=== PATIENT | female | born 1950 | race Caucasian/White ===

== ENCOUNTER 2019-04-29 18:01 | Inpatient (IN) | payer MEDICARE, OTHER ==
[~2019-04-29] VITALS: Ht 165.1 cm; Wt 60.9 kg
[~2019-04-29 18:01] MED LIST: VICODIN 500 MG-1 TAB PO; [UNRECOGNIZED DRUG - OTHER]
[2019-04-29 18:21] VITALS: BP 181/113
[2019-04-29 18:28] VITALS: BP 168/94
[2019-04-29 18:46] LABS: BASO # 0.1 10*3/uL (0.0-0.1); BASO % 0.6 % (0.0-1.0); EOS # 0.1 10*3/uL (0.0-0.4); EOS % 0.7 % (1.0-4.0); HEMOGLOBIN 11.5 g/dl (12.0-16.0); LYMPH # 1.3 10*3/uL (1.3-4.4); LYMPH % 13.9 % (27.0-41.0); MEAN CELL VOLUME 103.6 fl (81.0-99.0); MEAN CORPUSCULAR HGB CONC 32.9 g/dl (33.0-37.0); MONO # 0.6 10*3/uL (0.1-1.0); MONO % 6.5 % (3.0-9.0); NEUT # 7.4 10*3/uL (2.3-7.9); NEUT % 78.1 % (47.0-73.0); PLATELET COUNT AUTOMATED 243 10*3/uL (130-400); RED BLOOD COUNT 3.38 10*6/uL (4.10-5.10); RED CELL DISTRI WIDTH 13.2 % (0-14.5); WHITE BLOOD COUNT 9.5 10*3/uL (4.8-10.8)
[2019-04-29 18:58] LABS: ACT PARTIAL THROMBO TIME 28.8 SECONDS (20.0-32.1)
[2019-04-29 19:02] LABS: ALBUMIN 3.3 gm/dl (3.1-4.5); ALKALINE PHOSPHATASE 98 U/L (45-117); BUN 11 mg/dl (7-24); CHLORIDE 99 mmol/L (98-107); CREATININE 1.02 mg/dL (0.55-1.02); POTASSIUM 3.1 mmol/L (3.5-5.1); SGOT/AST 14 IU/L (3-35); SGPT/ALT 20 U/L (12-78); SODIUM 135 mmol/L (136-145); TOTAL PROTEIN 7.5 gm/dL (6.4-8.2)
[2019-04-29 19:12] LABS: TROPONIN I < 0.015 ng/ml (<0.045)
[2019-04-29 19:35] VITALS: BP 121/77
[2019-04-29 21:05] LABS: ABG BASE EXCESS 4.6 mmol/L (-2.0-2.0); ARTERIAL BLOOD GAS PH 7.451 (7.35-7.45)
[2019-04-29 21:27] VITALS: BP 147/83
[2019-04-29] MEDS ORDERED: QUINOPRIL PO (22:48)
[2019-04-29] MEDS ORDERED: PROAIR HFA8.5 GM INH (22:50)
[2019-04-29] MEDS ORDERED: TYLENOL325 M1 PO (22:55)
[2019-04-30] VITALS: BP 126/94
[2019-04-30 07:07] LABS: BASO # 0.1 10*3/uL (0.0-0.1); EOS # 0.1 10*3/uL (0.0-0.4); EOS % 2.3 % (1.0-4.0); HEMATOCRIT 33.5 % (37.0-47.0); LYMPH # 1.6 10*3/uL (1.3-4.4); MEAN CELL VOLUME 103.7 fl (81.0-99.0); MEAN CORPUSCULAR HGB 34.1 pg (27.0-31.0); MEAN CORPUSCULAR HGB CONC 32.8 g/dl (33.0-37.0); MEAN PLATELET VOLUME 9.3 fl (9.6-12.3); MONO # 0.5 10*3/uL (0.1-1.0); NEUT # 3.7 10*3/uL (2.3-7.9); NEUT % 62.4 % (47.0-73.0); PLATELET COUNT AUTOMATED 224 10*3/uL (130-400); RED BLOOD COUNT 3.23 10*6/uL (4.10-5.10); RED CELL DISTRI WIDTH 13.2 % (0-14.5)
[2019-04-30 07:08] LABS: ALBUMIN 3.1 gm/dl (3.1-4.5); CREATININE 1.21 mg/dL (0.55-1.02); FREE T4 1.27 ng/dl (0.76-1.46); PHOSPHOROUS 3.6 mg/dL (2.5-4.9); TOTAL PROTEIN 7.3 gm/dL (6.4-8.2)
[2019-04-30 07:13] LABS: THYROID STIM HORMONE (HS) 2.51 uIU/ml (0.358-4.75)
[2019-04-30 08:05] VITALS: BP 140/82
[2019-04-30 08:47] LABS: VITAMIN D, 25-HYDROXY 34.1 ng/mL (30-100)
[2019-04-30 12:00] VITALS: BP 147/83
[2019-04-30 14:16] VITALS: BP 110/72
[2019-04-30 15:59] LABS: BUN 15 mg/dl (7-24); CHLORIDE 101 mmol/L (98-107); CREATININE 1.29 mg/dL (0.55-1.02); POTASSIUM 3.9 mmol/L (3.5-5.1); SODIUM 136 mmol/L (136-145)
[2019-04-30 16:04] LABS: TROPONIN I < 0.015 ng/ml (<0.045)
[2019-04-30 20:00] VITALS: BP 137/69
[2019-05-01] VITALS: BP 151/85
[2019-05-01 07:50] LABS: HEMATOCRIT 33.8 % (37.0-47.0); HEMOGLOBIN 10.8 g/dl (12.0-16.0); LYMPH # 0.8 10*3/uL (1.3-4.4); LYMPH % 11.1 % (27.0-41.0); MEAN CELL VOLUME 103.4 fl (81.0-99.0); MEAN PLATELET VOLUME 9.1 fl (9.6-12.3); MONO # 0.4 10*3/uL (0.1-1.0); MONO % 6.2 % (3.0-9.0); NEUT # 5.5 10*3/uL (2.3-7.9); NEUT % 82.3 % (47.0-73.0); PLATELET COUNT AUTOMATED 212 10*3/uL (130-400); RED BLOOD COUNT 3.27 10*6/uL (4.10-5.10); RED CELL DISTRI WIDTH 13.2 % (0-14.5); WHITE BLOOD COUNT 6.7 10*3/uL (4.8-10.8)
[2019-05-01 08:06] LABS: CREATININE 1.17 mg/dL (0.55-1.02); POTASSIUM 4.1 mmol/L (3.5-5.1)
[2019-05-01 08:50] VITALS: BP 150/82
[2019-05-01 12:00] VITALS: BP 155/74
[2019-05-01 17:00] VITALS: BP 142/74
[2019-05-01 20:00] VITALS: BP 132/61
[2019-05-02] VITALS: BP 130/73
[2019-05-02 07:16] LABS: BASO % 0.1 % (0.0-1.0); HEMATOCRIT 31.9 % (37.0-47.0); HEMOGLOBIN 10.3 g/dl (12.0-16.0); LYMPH # 0.8 10*3/uL (1.3-4.4); LYMPH % 9.4 % (27.0-41.0); MEAN CELL VOLUME 103.9 fl (81.0-99.0); MEAN CORPUSCULAR HGB 33.6 pg (27.0-31.0); MEAN CORPUSCULAR HGB CONC 32.3 g/dl (33.0-37.0); MEAN PLATELET VOLUME 9.2 fl (9.6-12.3); MONO # 0.4 10*3/uL (0.1-1.0); MONO % 5.2 % (3.0-9.0); NEUT % 84.9 % (47.0-73.0); PLATELET COUNT AUTOMATED 226 10*3/uL (130-400); RED BLOOD COUNT 3.07 10*6/uL (4.10-5.10); RED CELL DISTRI WIDTH 13.2 % (0-14.5); WHITE BLOOD COUNT 8.2 10*3/uL (4.8-10.8)
[2019-05-02 07:25] LABS: BUN 26 mg/dl (7-24); CHLORIDE 107 mmol/L (98-107); POTASSIUM 3.8 mmol/L (3.5-5.1); SODIUM 139 mmol/L (136-145)
[2019-05-02 08:00] VITALS: BP 154/70; BP 156/80
[2019-05-02 12:00] VITALS: BP 150/69
[2019-05-02 16:00] VITALS: BP 143/59
[2019-05-02 20:00] VITALS: BP 152/77
[2019-05-03] VITALS (7 sets, daily range): BP systolic 150–168; BP diastolic 72–94
[2019-05-03 07:03] LABS: BUN 30 mg/dl (7-24); CHLORIDE 109 mmol/L (98-107); CREATININE 1.08 mg/dL (0.55-1.02); POTASSIUM 3.8 mmol/L (3.5-5.1); SODIUM 141 mmol/L (136-145)
[2019-05-04] VITALS: BP 165/84
[2019-05-04 06:27] LABS: BASO % 0.1 % (0.0-1.0); HEMATOCRIT 33.8 % (37.0-47.0); HEMOGLOBIN 10.9 g/dl (12.0-16.0); LYMPH % 12.5 % (27.0-41.0); MEAN CORPUSCULAR HGB 33.9 pg (27.0-31.0); MEAN CORPUSCULAR HGB CONC 32.2 g/dl (33.0-37.0); MEAN PLATELET VOLUME 9.3 fl (9.6-12.3); MONO # 0.7 10*3/uL (0.1-1.0); MONO % 7.8 % (3.0-9.0); NEUT # 6.6 10*3/uL (2.3-7.9); PLATELET COUNT AUTOMATED 250 10*3/uL (130-400); RED BLOOD COUNT 3.22 10*6/uL (4.10-5.10); RED CELL DISTRI WIDTH 13.5 % (0-14.5); WHITE BLOOD COUNT 8.4 10*3/uL (4.8-10.8)
[2019-05-04 06:37] LABS: CREATININE 1.11 mg/dL (0.55-1.02); POTASSIUM 4.1 mmol/L (3.5-5.1)
[2019-05-04 08:00] VITALS: BP 158/90
[2019-05-04] MEDS ORDERED: METOPROLOL SUCC50 M1 PO (08:52)
[2019-05-04] MEDS ORDERED: PREDNISONE10 MG PO (08:52)
[2019-05-04] MEDS ORDERED: XARE15TA PO (08:52)
[2019-05-04 12:00] VITALS: BP 150/72
== END 2019-05-04 16:46 | disposition home or self-care (01) | DRG 871 ==
LOC: ED 18:01 → 4E 20:47 → EDHOLD 20:47 → 4E 21:03
PROVIDERS: Emergency Medicine; Internal Medicine; Student in an Organized Health Care Education/Training Program; ADMIT Family Medicine
DX: A41.9 Sepsis, unspecified organism (principal); J18.0 Bronchopneumonia, unspecified organism; J96.01 Acute respiratory failure with hypoxia; J96.02 Acute respiratory failure with hypercapnia; I50.23 Acute on chronic systolic (congestive) heart failure; I16.1 Hypertensive emergency; E44.0 Moderate protein-calorie malnutrition; I47.1 Supraventricular tachycardia; E87.1 Hypo-osmolality and hyponatremia; D68.69 Other thrombophilia; J44.0 Chronic obstructive pulmonary disease with (acute) lower respiratory infection; I42.0 Dilated cardiomyopathy; N17.9 Acute kidney failure, unspecified; R65.20 Severe sepsis without septic shock; J44.9 Chronic obstructive pulmonary disease, unspecified; D53.9 Nutritional anemia, unspecified; E87.6 Hypokalemia; R73.9 Hyperglycemia, unspecified; E83.42 Hypomagnesemia; F17.210 Nicotine dependence, cigarettes, uncomplicated; I11.0 Hypertensive heart disease with heart failure; I48.0 Paroxysmal atrial fibrillation; Z96.642 Presence of left artificial hip joint; Z68.21 Body mass index [BMI] 21.0-21.9, adult; Z88.8 Allergy status to other drugs, medicaments and biological substances; Z88.0 Allergy status to penicillin; Z71.6 Tobacco abuse counseling; Z98.51 Tubal ligation status; Z79.899 Other long term (current) drug therapy

== ENCOUNTER → 2019-05-25 | Outpatient (CLI) | payer MEDICARE, OTHER ==
[~2019-05-25] MED LIST changes: +METOPROLOL SUCC50 M1 PO; +PREDNISONE10 MG PO; +PROAIR HFA8.5 GM INH; +QUINOPRIL PO; +TYLENOL325 M1 PO; +XARE15TA PO
[2019-05-25 19:11] LABS: CREATININE 1.33 mg/dL (0.55-1.02); POTASSIUM 4.4 mmol/L (3.5-5.1)
== END | disposition home or self-care (01) ==
LOC: LAB 17:10
PROVIDERS: Physician Assistant Medical
DX: R60.0 Localized edema (principal); I50.23 Acute on chronic systolic (congestive) heart failure; R06.89 Other abnormalities of breathing

== ENCOUNTER 2019-07-13 00:12 | Inpatient (IN) | payer MEDICARE, OTHER ==
[~2019-07-13] VITALS: Ht 170.1 cm; Wt 56.0 kg
[2019-07-13] VITALS (9 sets, daily range): BP systolic 131–158; BP diastolic 61–102
[2019-07-13 00:43] LABS: BASO # 0.1 10*3/uL (0.0-0.1); BASO % 0.9 % (0.0-1.0); EOS # 0.1 10*3/uL (0.0-0.4); EOS % 1.5 % (1.0-4.0); HEMATOCRIT 33.8 % (37.0-47.0); HEMOGLOBIN 10.9 g/dl (12.0-16.0); LYMPH # 1.7 10*3/uL (1.3-4.4); LYMPH % 22.4 % (27.0-41.0); MEAN CELL VOLUME 107.6 fl (81.0-99.0); MEAN CORPUSCULAR HGB 34.7 pg (27.0-31.0); MEAN CORPUSCULAR HGB CONC 32.2 g/dl (33.0-37.0); MONO # 0.6 10*3/uL (0.1-1.0); MONO % 7.9 % (3.0-9.0); NEUT # 5.1 10*3/uL (2.3-7.9); PLATELET COUNT AUTOMATED 223 10*3/uL (130-400); RED BLOOD COUNT 3.14 10*6/uL (4.10-5.10); WHITE BLOOD COUNT 7.6 10*3/uL (4.8-10.8)
[2019-07-13 00:56] LABS: ACT PARTIAL THROMBO TIME 26.8 SECONDS (20.0-32.1)
[2019-07-13 01:01] LABS: ALBUMIN 3.3 gm/dl (3.1-4.5); ALKALINE PHOSPHATASE 83 U/L (45-117); BUN 15 mg/dl (7-24); CHLORIDE 98 mmol/L (98-107); CREATININE 0.87 mg/dL (0.55-1.02); SGOT/AST 16 IU/L (3-35); SGPT/ALT 16 U/L (12-78); SODIUM 136 mmol/L (136-145); TOTAL PROTEIN 7.1 gm/dL (6.4-8.2)
[2019-07-13 01:03] LABS: TROPONIN I < 0.015 ng/ml (<0.045)
[2019-07-13] MEDS ORDERED: BUMETANIDE0.5 MG PO (02:51)
[2019-07-13] MEDS ORDERED: HYDROXYZINE PAM25 M1 PO (03:23)
[2019-07-13 06:31] LABS: BUN 15 mg/dl (7-24); CHLORIDE 98 mmol/L (98-107); CREATININE 0.85 mg/dL (0.55-1.02); POTASSIUM 4.1 mmol/L (3.5-5.1); SODIUM 137 mmol/L (136-145)
[2019-07-13 09:51] LABS: HEMATOCRIT 34.6 % (37.0-47.0); HEMOGLOBIN 11.2 g/dl (12.0-16.0); MEAN CELL VOLUME 107.1 fl (81.0-99.0); MEAN CORPUSCULAR HGB 34.7 pg (27.0-31.0); MEAN CORPUSCULAR HGB CONC 32.4 g/dl (33.0-37.0); MEAN PLATELET VOLUME 9.4 fl (9.6-12.3); PLATELET COUNT AUTOMATED 203 10*3/uL (130-400); RED BLOOD COUNT 3.23 10*6/uL (4.10-5.10); WHITE BLOOD COUNT 6.2 10*3/uL (4.8-10.8)
[2019-07-13 10:13] LABS: PLATELET SUFFICIENCY NORMAL (NORMAL); POLYCHROMASIA SLIGHT; TOTAL CELLS COUNTED 100 #CELLS
[2019-07-13 18:50] LABS: CLARITY CLEAR (CLEAR); COLOR YELLOW (YELLOW)
[2019-07-13 18:54] LABS: BACTERIA 2+; BILIRUBIN NEGATIVE (NEGATIVE); BLOOD 1+ (NEGATIVE); GLUCOSE NEGATIVE (NEGATIVE); KETONE NEGATIVE (NEGATIVE); LEUKO ESTERASE 2+ (NEGATIVE); NITRITE NEGATIVE (NEGATIVE); SPECIFIC GRAVITY 1.015 (1.005-1.030); UROBILINOGEN 0.2 E.U./dl (0.2-1.0); WBC 16-20 wbc/hpf (0-5)
[2019-07-14] VITALS: BP 142/75
[2019-07-14 06:16] LABS: BASO % 0.1 % (0.0-1.0); BUN 20 mg/dl (7-24); CHLORIDE 99 mmol/L (98-107); CREATININE 1.05 mg/dL (0.55-1.02); HEMATOCRIT 29.4 % (37.0-47.0); HEMOGLOBIN 9.8 g/dl (12.0-16.0); LYMPH # 0.6 10*3/uL (1.3-4.4); LYMPH % 5.9 % (27.0-41.0); MEAN CORPUSCULAR HGB 34.5 pg (27.0-31.0); MEAN CORPUSCULAR HGB CONC 33.3 g/dl (33.0-37.0); MEAN PLATELET VOLUME 9.5 fl (9.6-12.3); MONO # 0.5 10*3/uL (0.1-1.0); NEUT # 8.9 10*3/uL (2.3-7.9); NEUT % 88.5 % (47.0-73.0); PLATELET COUNT AUTOMATED 199 10*3/uL (130-400); POTASSIUM 3.4 mmol/L (3.5-5.1); RED BLOOD COUNT 2.84 10*6/uL (4.10-5.10); RED CELL DISTRI WIDTH 13.8 % (0-14.5); SODIUM 139 mmol/L (136-145); WHITE BLOOD COUNT 10.1 10*3/uL (4.8-10.8)
[2019-07-14 06:19] LABS: MEAN CELL VOLUME 103.5 fl (81.0-99.0)
[2019-07-14 08:00] VITALS: BP 148/73
[2019-07-14 12:00] VITALS: BP 122/70
[2019-07-14 16:00] VITALS: BP 113/58
[2019-07-14 20:00] VITALS: BP 130/68
[2019-07-15] VITALS: BP 137/69
[2019-07-15 06:31] LABS: BASO % 0.1 % (0.0-1.0); EOS % 0.1 % (1.0-4.0); HEMATOCRIT 29.9 % (37.0-47.0); HEMOGLOBIN 9.8 g/dl (12.0-16.0); LYMPH # 0.7 10*3/uL (1.3-4.4); MEAN CORPUSCULAR HGB 34.5 pg (27.0-31.0); MEAN CORPUSCULAR HGB CONC 32.8 g/dl (33.0-37.0); MEAN PLATELET VOLUME 9.4 fl (9.6-12.3); MONO # 0.6 10*3/uL (0.1-1.0); MONO % 5.3 % (3.0-9.0); NEUT # 10.3 10*3/uL (2.3-7.9); NEUT % 87.8 % (47.0-73.0); PLATELET COUNT AUTOMATED 216 10*3/uL (130-400); RED BLOOD COUNT 2.84 10*6/uL (4.10-5.10); RED CELL DISTRI WIDTH 14.1 % (0-14.5); WHITE BLOOD COUNT 11.7 10*3/uL (4.8-10.8)
[2019-07-15 06:35] LABS: MEAN CELL VOLUME 105.3 fl (81.0-99.0)
[2019-07-15 06:50] LABS: BUN 23 mg/dl (7-24); CHLORIDE 97 mmol/L (98-107); POTASSIUM 3.7 mmol/L (3.5-5.1); SODIUM 138 mmol/L (136-145)
[2019-07-15 08:00] VITALS: BP 132/78
[2019-07-15 12:00] VITALS: BP 140/72
[2019-07-15] MEDS ORDERED: ALDACTONE25 MG PO (13:31)
[2019-07-15] MEDS ORDERED: SOLU-MEDRO40 MG/1 ML IV (13:31)
[2019-07-15 16:00] VITALS: BP 135/78
[2019-07-15 20:00] VITALS: BP 119/65
[2019-07-15 20:23] VITALS: BP 120/68
[2019-07-16] VITALS: BP 136/66
[2019-07-16 06:58] LABS: BUN 24 mg/dl (7-24); CHLORIDE 97 mmol/L (98-107); CREATININE 0.89 mg/dL (0.55-1.02); POTASSIUM 3.7 mmol/L (3.5-5.1); SODIUM 136 mmol/L (136-145)
[2019-07-16 07:00] LABS: HEMOGLOBIN 9.7 g/dl (12.0-16.0); LYMPH # 0.7 10*3/uL (1.3-4.4); LYMPH % 7.2 % (27.0-41.0); MEAN CORPUSCULAR HGB 34.3 pg (27.0-31.0); MEAN CORPUSCULAR HGB CONC 32.3 g/dl (33.0-37.0); MEAN PLATELET VOLUME 9.3 fl (9.6-12.3); MONO # 0.4 10*3/uL (0.1-1.0); MONO % 3.8 % (3.0-9.0); NEUT # 8.1 10*3/uL (2.3-7.9); NEUT % 88.3 % (47.0-73.0); PLATELET COUNT AUTOMATED 198 10*3/uL (130-400); RED BLOOD COUNT 2.83 10*6/uL (4.10-5.10); RED CELL DISTRI WIDTH 13.9 % (0-14.5); WHITE BLOOD COUNT 9.2 10*3/uL (4.8-10.8)
[2019-07-16 08:00] VITALS: BP 135/68
[2019-07-16] MEDS ORDERED: ALDACTONE25 MG PO (10:32)
[2019-07-16] MEDS ORDERED: XARE20MG PO (10:32)
[2019-07-16] MEDS ORDERED: PREDNISONE10 MG PO (10:32)
== END 2019-07-16 15:08 | disposition home health service (06) | DRG 871 ==
LOC: ED 00:12 → EDHOLD 02:08 → 4E 02:08
PROVIDERS: Emergency Medicine; Family Medicine; Internal Medicine; Student in an Organized Health Care Education/Training Program; ADMIT Internal Medicine
DX: A41.9 Sepsis, unspecified organism (principal); J18.9 Pneumonia, unspecified organism; I50.23 Acute on chronic systolic (congestive) heart failure; J96.21 Acute and chronic respiratory failure with hypoxia; J44.1 Chronic obstructive pulmonary disease with (acute) exacerbation; E44.0 Moderate protein-calorie malnutrition; J44.0 Chronic obstructive pulmonary disease with (acute) lower respiratory infection; I48.21 Permanent atrial fibrillation; E87.2 Acidosis; R65.20 Severe sepsis without septic shock; I48.0 Paroxysmal atrial fibrillation; I11.0 Hypertensive heart disease with heart failure; I34.1 Nonrheumatic mitral (valve) prolapse; D53.9 Nutritional anemia, unspecified; F17.210 Nicotine dependence, cigarettes, uncomplicated; J20.9 Acute bronchitis, unspecified; I87.2 Venous insufficiency (chronic) (peripheral); I25.10 Atherosclerotic heart disease of native coronary artery without angina pectoris; Z71.6 Tobacco abuse counseling; Z68.20 Body mass index [BMI] 20.0-20.9, adult; Z79.899 Other long term (current) drug therapy; Z96.652 Presence of left artificial knee joint; Z98.51 Tubal ligation status; Z82.49 Family history of ischemic heart disease and other diseases of the circulatory system; Z83.6 Family history of other diseases of the respiratory system; Z79.01 Long term (current) use of anticoagulants; Z88.0 Allergy status to penicillin; Z88.8 Allergy status to other drugs, medicaments and biological substances

== ENCOUNTER 2019-08-06 23:55 | Inpatient (IN) | payer MEDICARE, OTHER ==
[~2019-08-06] VITALS: Ht 165.1 cm; Wt 57.2 kg
[~2019-08-06 23:55] MED LIST changes: +ALDACTONE25 MG PO; +BUMETANIDE0.5 MG PO; +HYDROXYZINE PAM25 M1 PO; +SOLU-MEDRO40 MG/1 ML IV; +XARE20MG PO
[2019-08-07] VITALS (10 sets, daily range): BP systolic 100–154; BP diastolic 44–95
[2019-08-07 00:29] LABS: HEMATOCRIT 31.6 % (37.0-47.0); MEAN CELL VOLUME 110.5 fl (81.0-99.0); MEAN CORPUSCULAR HGB 34.6 pg (27.0-31.0); MEAN CORPUSCULAR HGB CONC 31.3 g/dl (33.0-37.0); MEAN PLATELET VOLUME 8.9 fl (9.6-12.3); PLATELET COUNT AUTOMATED 312 10*3/uL (130-400); RED BLOOD COUNT 2.86 10*6/uL (4.10-5.10); RED CELL DISTRI WIDTH 12.7 % (0-14.5); WHITE BLOOD COUNT 5.1 10*3/uL (4.8-10.8)
[2019-08-07 00:40] LABS: ACT PARTIAL THROMBO TIME 27.5 SECONDS (20.0-32.1)
[2019-08-07 00:45] LABS: ALBUMIN 3.1 gm/dl (3.1-4.5); ALKALINE PHOSPHATASE 97 U/L (45-117); BUN 13 mg/dl (7-24); CHLORIDE 107 mmol/L (98-107); CREATININE 0.94 mg/dL (0.55-1.02); POTASSIUM 4.2 mmol/L (3.5-5.1); SGOT/AST 9 IU/L (3-35); SGPT/ALT 12 U/L (12-78); SODIUM 140 mmol/L (136-145); TOTAL PROTEIN 6.9 gm/dL (6.4-8.2); TROPONIN I 0.022 ng/ml (<0.045)
[2019-08-07 00:49] LABS: ATYPICAL LYMPHS 2 % (0-0); PLATELET SUFFICIENCY NORMAL (NORMAL); TOTAL CELLS COUNTED 100 #CELLS
--- NOTE | 2019-08-07 01:10 | NUR ---
PT SET UP WITH BEDSIDE COMMODE PT TAKEN OFF EMS O2 NONREBREATHER AND PLACED ON NASAL CANNULA AT 4LPM PULSE OX AT 97 % BED IN LOWEST POSITION CALL WHITE IN REACH PT TOLD TO USE CALL LIGHT FOR ANY REQUESTS AND OR NEED TO URINATE
--- NOTE | 2019-08-07 01:32 | NUR ---
PT USED BEDSIDE COMMODE PT NOW REQUSTING TO SIT ON SIDE OF BED PT STATES SHE IS FEELING WARM PT ON O2 NC AT 5LPN PULSE OX 96
--- NOTE | 2019-08-07 01:53 | NUR ---
PT UNSURE OF MEDS PT WAS TO BE ON BLOOD THINNER BUT COULD NOT AFFORD IT SO SHE HAS BEEN TAKING BABY ASPRIN IN STEAD
--- NOTE | 2019-08-07 02:45 | NUR ---
A 68, admitted to 4E, under the services of SHER Beth DO with a diagnosis of CHF EXACERBATION. Chief complaint is SOB. Patient arrived via stretcher from ER. Monitor applied. Initial assessment completed. Vital signs taken and recorded. SHER BETH DO notified of admission to the unit. Orders received. See assessment for past medical history, medications and allergies. Patient and/or family oriented to unit. [facility] visitation policy reviewed. Clothing/patient valuable form completed. RUKHSANA GONZALES
[2019-08-07] MEDS ORDERED: ASPIRIN ADULT L81 M1 PO (02:53)
[2019-08-07] MEDS ORDERED: QUINAPRIL20 MG PO (03:05)
[2019-08-07] MEDS ORDERED: OXYGEN NAS (03:06)
--- NOTE | 2019-08-07 03:06 | NUR ---
IN ROOM. MED REC UP TO DATE PER PT RECALL. PT STATES THERE ARE SOME MEDICATIONS THAT SHE HAS NOT HAD SINCE 07/16/19 (HER LAST DISCHARGE). THESE MEDS HAVE BEEN FLAGGED ON MED REC.
--- NOTE | 2019-08-07 03:36 | NUR ---
NATEANTONIO Walter [id number] Please refer to the physician's history and physical for past medical history, comorbid conditions, and allergies. Diagnosis: CHF EXACERBATION Daron Score: 15,AT RISK WOUND DESCRIPTIONS: Wound Number: 1 Location of the wound: left buttocks Type of wound: stage 3 Thickness: Full Size: 0.9cm x 0.7cm x 0.1cm Tunneling: none Undermining: none Sinus Tract: none Presence of Exudate: Serous Amount: Light Color: Red, yellow, brown Odor: None Periwound Skin Appearance: Normal Wound edges: approximated Pain (associated with wound): none at time of assessment How does patient state this happened? pt unsure how this happened Surface the patient is resting on: Position Pro SKIN PREVENTION RECOMMENDATION: 1. Pressure redistribution support surface as appropriate 2. Elevate heels 3. Remove boots/TEDS every shift and reapply 4. Head of bed 30 degrees as tolerated 5. Assess nutrition and hydration 6. Manage moisture 7. Avoid the use of containment devices while in bed 8. Use absorptive products on surfaces limit layers of linens on bed 9. Turn and reposition every 1-2 hours in bed and every 1 hour in chair as tolerated 10. Weight shifts every 15 minutes while up in chair 11. Offloading with pillows or device to keep heels elevated off bed 12. Monitor skin at least every shift 13. Inspect under medical devices twice a day WOUND TREATMENT RECOMMENDATIONS: Wheelchair cushion when oob. Stage 3 guidelines: Cleanse left buttocks with nss and apply sureprep around the wowund therahoney to wound bed and cover with optifoam gentle every 2 days and prn for soiling.
--- NOTE | 2019-08-07 05:12 | NUR ---
'S ANSWERING SERVICE CALLED REGARDING CONSULT.
[2019-08-07 06:16] LABS: MEAN CELL VOLUME 108.8 fl (81.0-99.0); MEAN CORPUSCULAR HGB 34.7 pg (27.0-31.0); MEAN CORPUSCULAR HGB CONC 31.9 g/dl (33.0-37.0); MEAN PLATELET VOLUME 8.9 fl (9.6-12.3); PLATELET COUNT AUTOMATED 331 10*3/uL (130-400); RED BLOOD COUNT 2.94 10*6/uL (4.10-5.10); RED CELL DISTRI WIDTH 12.5 % (0-14.5); WHITE BLOOD COUNT 5.7 10*3/uL (4.8-10.8)
[2019-08-07 06:24] LABS: ACT PARTIAL THROMBO TIME 26.7 SECONDS (20.0-32.1)
[2019-08-07 06:36] LABS: ALBUMIN 3.3 gm/dl (3.1-4.5); ALKALINE PHOSPHATASE 100 U/L (45-117); BUN 14 mg/dl (7-24); CHLORIDE 99 mmol/L (98-107); CHOLESTEROL 189 mg/dL (<200); CREATININE 1.02 mg/dL (0.55-1.02); HDL CHOLESTEROL 72 mg/dl (40-60); LDL CHOLESTEROL 103 mg/dL (9-159); PHOSPHOROUS 3.7 mg/dL (2.5-4.9); SGOT/AST 13 IU/L (3-35); SGPT/ALT 13 U/L (12-78); SODIUM 137 mmol/L (136-145); TOTAL PROTEIN 7.3 gm/dL (6.4-8.2); TRIGLYCERIDES 71 mg/dl (<150); VLDL CHOLESTEROL 14 mg/dL (6-40)
[2019-08-07 06:56] LABS: PLATELET SUFFICIENCY NORMAL (NORMAL); TOTAL CELLS COUNTED 100 #CELLS
[2019-08-07 07:19] LABS: VITAMIN D, 25-HYDROXY 34.3 ng/mL (30-100)
--- NOTE | 2019-08-07 10:35 | NUR ---
Physical Therapy evaluation completed on 4th floor with full evaluation to follow. Recommend physical therapy per plan of care and would benefit from SNF prior to discharge home as pt lives alone very deconditioned. Thank you for this referral. Lucille Jiang PT
--- NOTE | 2019-08-07 10:45 | NUR ---
Occupational Therapy evaluation completed on four with full evaluation to follow. Recommend occupational therapy per plan of care and SNF upon discharge. Thank you for this referral. Chelsea Randall OTR/L
--- NOTE | 2019-08-07 12:34 | NUR ---
MEDICATED WITH PRN PO TYLENOL FOR HEADACHE.
--- NOTE | 2019-08-07 21:37 | NUR ---
PT MEDICATED WITH PO VISTARIL PER PRN ORDER FOR C/O ANXIETY. PT TAKES THIS AT HOME. PT ASSISTED UP TO BSC AND BACK INTO CHAIR. LIFE VEST INTACT WITH BATTERY 3/4 FULL. BACKUP BATTERY ON UTILITY PLANT OPERATIVE IN ROOM. PT DENIES ANY OTHER NEEDS AT PRESENT TIME. WILL MONITOR. CALL LIGHT IN REACH.
--- NOTE | 2019-08-07 23:39 | NUR ---
PT ASSISTED FROM BED TO CHAIR TO SLEEP. HOB ELEVATED PER REQUEST. HUMIDIFIFER APPLIED TO O2 PER PT REQUEST PT C/O NOSE BEING DRY WITH SMALL AMOUNT OF EPISTAXIS. WILL MONITOR. CALL LIGHT IN REACH.
[2019-08-08] VITALS (8 sets, daily range): BP systolic 80–127; BP diastolic 50–65
--- NOTE | 2019-08-08 02:45 | NUR ---
PT MEDICATED WITH PO TYLENOL FOR C/O PAIN IN BLL AND FEET RATED 8/10. FREDDY HOSE REMOVED PER PT REQUEST. WILL MONITOR. CALL LIGHT IN REACH.
[2019-08-08 06:15] LABS: BASO # 0.1 10*3/uL (0.0-0.1); BASO % 0.9 % (0.0-1.0); EOS # 0.3 10*3/uL (0.0-0.4); EOS % 5.3 % (1.0-4.0); HEMATOCRIT 28.4 % (37.0-47.0); LYMPH # 1.6 10*3/uL (1.3-4.4); LYMPH % 28.8 % (27.0-41.0); MEAN CELL VOLUME 107.2 fl (81.0-99.0); MEAN CORPUSCULAR HGB 34.7 pg (27.0-31.0); MEAN CORPUSCULAR HGB CONC 32.4 g/dl (33.0-37.0); MEAN PLATELET VOLUME 9.3 fl (9.6-12.3); MONO # 0.7 10*3/uL (0.1-1.0); MONO % 13.2 % (3.0-9.0); NEUT # 2.9 10*3/uL (2.3-7.9); NEUT % 51.6 % (47.0-73.0); PLATELET COUNT AUTOMATED 326 10*3/uL (130-400); RED BLOOD COUNT 2.65 10*6/uL (4.10-5.10); RED CELL DISTRI WIDTH 12.7 % (0-14.5); WHITE BLOOD COUNT 5.5 10*3/uL (4.8-10.8)
[2019-08-08 06:36] LABS: CREATININE 1.1 mg/dL (0.55-1.02); POTASSIUM 3.2 mmol/L (3.5-5.1)
--- NOTE | 2019-08-08 09:00 | NUR ---
Etl Data Architect in to talk to patient. Patient states lives at home with alone. There are no steps in the home. Physician: iris lopez Pharmacy: [facility] Home health services: [facility] Patient's level of ADLs: MINIMAL ASSIST Patient has working utilities: all working DME: cane Follow-up physician's appointment after d/c: will be made by hospitalist nurse director upon discharge Does patient want to access PORTAL?: no Discharge plan discussed with patient she states she lives at home alone, she uses a cane for ambulation and is independent in adls, she states she OVHH currently and would like to resume them when she is discharge, she has home oxygen from [facility], she also wears a life vest. patient states he brother will pick her up when she is discharge from the hospital, case management will follow. MALCOLM YANG
--- NOTE | 2019-08-08 09:50 | NUR ---
MEDICATED WITH PRN PO TYLENOL FOR BILATERAL LEG SORENESS.
--- NOTE | 2019-08-08 10:06 | NUR ---
HELD LISINOPRIL AND METOPROLOL D/T BP 80/[address] GOLDBERG RE: ABNORMAL BLOOD PRESSURE, HE ORDERED TO ALSO HOLD THE LASIX IV THIS MORNING. NEW ORDERS ENTERED BY DR. GOLDBERG.
--- NOTE | 2019-08-08 11:24 | NUR ---
PRN PO TYLENOL EFFECTIVE FOR LEGS PAIN, PER PATIENT.
--- NOTE | 2019-08-08 13:19 | NUR ---
case management received a message that patient's daughter thought patient was unsafe at home and would like her to go to a short term longterm for rehab prior to returning home, patient is in agreement with this and chose [facility], turnaround planner will send referral to [facility] for when patient is medically stable for discharge
--- NOTE | 2019-08-08 13:45 | NUR ---
PHYSICAL THERAPY Patient seen this pm 1;1 for therapy visit and was supine in bed upon therapist arrival. Patient identified by name / and presented with continuous IV treatment / O2-4L via NC. Patient also reported generalized, global weakness and transfers supine to sit EOB with SBA x 1. Patient needed a minute or so to fully collect herself prior to completing several sit to stand transfers, CGA, no AD, tolerating 74 seconds static stand first trial and 53 seconds second trial. Patient resting SpO2 94%, HR 96 bpm and following stand tolerance dropped to 87% SpO2, HR 92 bpm. Patient fatigues quickly with increased SOB, requiring v/c for purse lip breathing technique. Patient remained sitting EOB with call light, tray table and telephone, recording SpO2 93%, HR 91 bpm following treatment. Will continue per POC as tolerated, total treatment time 13 minutes. Catracho Ahuja, BOILING TUB OPERATOR
--- NOTE | 2019-08-08 13:47 | NUR ---
OT NOTE Pt was seen this P.M. 1:1 for 17 minute OT session. Upon arrival pt was sitting upright on the EOB. Pt identified by name and and had no complaints at this time other than generalized fatigue and weakness. Pt presented to therapy with continuous 4L-O2 via NC and IV which she remained on throughout the entire session. Pt's resting SpO2 was 94% and heart rate 96 bpm. Pt completed multiple sit to stand transfers from bed level with CGA for safety. Challenged pt's static standing tolerance needed for increased I in self care tasks and functional transfers, pt was able to tolerate aprox 53-74 seconds at a time before sitting due to fatigue and feeling SOB. Pt's SpO2 dropped to 87% and within aprox 30 seconds raised to 93% and heart rate 91 bpm. Pt was left sitting upright on the EOB with call light in hand, tray table in place, and phone in reach. Continue with rec D/C plan to SNF. DONELL Penn
--- NOTE | 2019-08-08 18:26 | NUR ---
TYLENOL GIVEN FOR C/O FEET PAIN, VISTARIL GIVEN FOR C/O ANXIETY. WILL MONITOR.
[2019-08-09] VITALS: BP 111/75
--- NOTE | 2019-08-09 03:23 | NUR ---
Upon discharge recommend patient to follow up for wound care in outpatient setting continue current wound care orders at discharging facility.
--- NOTE | 2019-08-09 06:00 | NUR ---
TYLENOL GIVEN FOR C/O FOOT PAIN. RATED PAIN A 7/10 WITH 10 BEING THE WORST. SEE EMAR.
[2019-08-09 06:15] LABS: BASO # 0.1 10*3/uL (0.0-0.1); BASO % 1.2 % (0.0-1.0); EOS # 0.3 10*3/uL (0.0-0.4); EOS % 6.9 % (1.0-4.0); HEMATOCRIT 28.6 % (37.0-47.0); LYMPH # 1.4 10*3/uL (1.3-4.4); LYMPH % 28.7 % (27.0-41.0); MEAN CELL VOLUME 107.5 fl (81.0-99.0); MEAN CORPUSCULAR HGB 34.2 pg (27.0-31.0); MEAN CORPUSCULAR HGB CONC 31.8 g/dl (33.0-37.0); MEAN PLATELET VOLUME 9.2 fl (9.6-12.3); MONO # 0.7 10*3/uL (0.1-1.0); MONO % 14.2 % (3.0-9.0); NEUT # 2.4 10*3/uL (2.3-7.9); NEUT % 48.8 % (47.0-73.0); PLATELET COUNT AUTOMATED 289 10*3/uL (130-400); RED BLOOD COUNT 2.66 10*6/uL (4.10-5.10); RED CELL DISTRI WIDTH 12.7 % (0-14.5); WHITE BLOOD COUNT 4.9 10*3/uL (4.8-10.8)
[2019-08-09 06:43] LABS: BUN 18 mg/dl (7-24); CHLORIDE 98 mmol/L (98-107); CREATININE 0.94 mg/dL (0.55-1.02); SODIUM 136 mmol/L (136-145)
[2019-08-09 06:47] LABS: POTASSIUM 4.2 mmol/L (3.5-5.1)
--- NOTE | 2019-08-09 07:54 | NUR ---
Awaiting acceptance from [facility]. MUSIC COMPOSER completed HENs.
--- NOTE | 2019-08-09 07:55 | NUR ---
PHYSICAL THERAPY Patient seen this am 1;1 for therapy visit and was supine in bed ordering breakfast upon therapist arrival. Patient identified by name / and presented with continuous O2-4L via NC, reporting no new c/o's at this time. OT assistant professor of education was also present for observation only this session as patient transfers supine to sit EOB with SBA. Patient completed several sit to stand transfers, CGA, demonstrating very slow rise and was able to ambulate 7'x 2, DIE DRAWING CHECKER/CGA. Patient was very cautious with slow ny and decreased stride while returning to EOB sit for rest break due to increased fatigue. Patient instructed on and performed seated B LE therex, all planes, x 10 reps each without c/o, remaining seated EOB awaiting breakfast. Patient tolerated all treatment with vital signs remaining WFL's as call light, tray table and cell phone were all within patient reach. Will continue per POC as tolerated, total treatment time 17 minutes. Catracho Ahuja, WINCH RUNNER
[2019-08-09 08:00] VITALS: BP 136/55
--- NOTE | 2019-08-09 08:13 | NUR ---
OT NOTE Pt was seen this A.M. 1:1 for 19 minute OT session. Upon arrival pt was supine in bed. Pt identified by name and and had no complaints at this time other than generalized fatigue and weakness. Pt presented to therapy with continuous 4L-O2 via NC which she remained on throughout the entire session. Pt transferred supine to sit EOB with SBA. While sitting EOB pt donned B socks with SBA while bringing one leg up over her knee. Pt completed multiple sit to stand transfers from bed level with CGA, challenged pt's static standing tolerance needed for increased I in self care tasks and functional transfers. Pt was able to tolerate aprox 47 seconds, 45 seconds, and then 96 seconds before sitting due to fatigue. After a seated rest break pt completed functional mobility to the bedside commode with CGA CAR DESIGNER. Pt transferred on/off bedside commode with CGA for safety. Functional mobility completed back to the EOB where she was left sitting upright with call light in hand, tray table in place, and phone in reach. Continue with rec D/C plan to SNF. KARRIE Penn/Stacey
--- NOTE | 2019-08-09 09:00 | NUR ---
case management spoke to patient, she has been referred to [facility] for short term intermediate when medically stable, tenative discharge is for tomorrow, Tuesday, case management will follow
[2019-08-09 10:45] VITALS: BP 121/67
--- NOTE | 2019-08-09 13:52 | NUR ---
WOUND CARE TO BUTTOCK COMPLETED. TOLERATED WELL. NO COMPLAINTS VOICED. CALL LIGHT IN REACH.
[2019-08-09 14:00] VITALS: BP 118/63
--- NOTE | 2019-08-09 14:49 | NUR ---
Acceptance is still pending. [facility] faxed updates to [facility].
--- NOTE | 2019-08-09 15:26 | NUR ---
REQUESTED BREATHING TREATMENT. RT ZHOU NOTIFIED.
[2019-08-09 16:00] VITALS: BP 107/60
[2019-08-09 20:00] VITALS: BP 92/53
[2019-08-10] VITALS: BP 104/59
--- NOTE | 2019-08-10 02:50 | NUR ---
24 HR chart check completed.
[2019-08-10 06:06] LABS: BASO # 0.1 10*3/uL (0.0-0.1); BASO % 1.3 % (0.0-1.0); EOS # 0.5 10*3/uL (0.0-0.4); EOS % 8.1 % (1.0-4.0); HEMATOCRIT 28.9 % (37.0-47.0); LYMPH # 1.9 10*3/uL (1.3-4.4); LYMPH % 33.7 % (27.0-41.0); MEAN CELL VOLUME 109.9 fl (81.0-99.0); MEAN CORPUSCULAR HGB 34.6 pg (27.0-31.0); MEAN CORPUSCULAR HGB CONC 31.5 g/dl (33.0-37.0); MEAN PLATELET VOLUME 9.3 fl (9.6-12.3); MONO # 0.8 10*3/uL (0.1-1.0); MONO % 14.8 % (3.0-9.0); NEUT # 2.3 10*3/uL (2.3-7.9); NEUT % 41.9 % (47.0-73.0); PLATELET COUNT AUTOMATED 284 10*3/uL (130-400); RED BLOOD COUNT 2.63 10*6/uL (4.10-5.10); RED CELL DISTRI WIDTH 12.6 % (0-14.5); WHITE BLOOD COUNT 5.6 10*3/uL (4.8-10.8)
[2019-08-10 06:28] LABS: CREATININE 1.15 mg/dL (0.55-1.02); POTASSIUM 4.6 mmol/L (3.5-5.1)
--- NOTE | 2019-08-10 06:55 | NUR ---
Patient has been accepted to [facility] and can go when medically stable.
[2019-08-10 07:13] LABS: BASOPHILS 2 % (0-1); TOTAL CELLS COUNTED 100 #CELLS
[2019-08-10 07:14] LABS: PLATELET SUFFICIENCY NORMAL (NORMAL); ROULEAUX SLIGHT
[2019-08-10 08:00] VITALS: BP 128/62
[2019-08-10] MEDS ORDERED: POTASSIUM CHLO20 ME4 PO (08:13)
[2019-08-10] MEDS ORDERED: ATORVASTATIN CA40 M1 PO (08:13)
[2019-08-10] MEDS ORDERED: ALDACTONE25 MG PO (08:13)
[2019-08-10] MEDS ORDERED: ASPIRIN ADULT L81 M2 PO (08:13)
[2019-08-10] MEDS ORDERED: TORSEMIDE20 MG PO (08:13)
[2019-08-10] MEDS ORDERED: LISINOPRIL10 M1 PO (08:13)
--- NOTE | 2019-08-10 09:00 | NUR ---
case management talks with patient, she will be discharged to [facility] for short term mcc when medically stable, case management/social media specialist will follow
--- NOTE | 2019-08-10 09:07 | NUR ---
INFORMED OF DISCHARGE TODAY. ASKED IF IT WAS OK TO TAKE WOUND PICS/MEASUREMENTS OF BUTTOCK WOUND. PT DECLINED.
--- NOTE | 2019-08-10 09:25 | NUR ---
DISTRICT MANAGER MAJOR ACCOUNTS SALES notified of patient discharge. DISTRICT MANAGER MAJOR ACCOUNTS SALES spoke with LUIS Palacios. DISTRICT MANAGER MAJOR ACCOUNTS SALES contacted [facility] to schedule an 11am transport time to [facility]. DISTRICT MANAGER MAJOR ACCOUNTS SALES notified [facility], and next of kin Roman. DISTRICT MANAGER MAJOR ACCOUNTS SALES will fax discharge orders to [facility]. DISTRICT MANAGER MAJOR ACCOUNTS SALES notified Mary of transport time.
--- NOTE | 2019-08-10 09:51 | NUR ---
OT NOTE Pt was seen this A.M. 1:1 for 15 minute OT session. Upon arrival pt was supine in bed. Pt identified by name and and had no complaints at this time. Pt presented to therapy with continuous 4L-O2 via NC which she remained on throughout the entire session. Pt's resting SpO2 was 98% and heart rate 82 bpm. Pt transferred supine to sit EOB with SBA. While sitting EOB pt donned B socks with SBA. Sit to stand completed from bed level with CGA for safety. Functional mobility completed to the bathroom with CGA NASCAR RACER, throughout pt required one seated rest break mcc due to quick onset of fatigue. Throughout pt's SpO2 dropped to 90% and heart rate 100 bpm after aprox 20 seconds pt's SPo2 raised to 95% and heart rate 86 bpm. Pt was left sitting upright on the EOB with call ligh tin hand, tray table in place, and phone in reach. Continue with rec D/C plan to SNF. KARRIE Penn/Stacey
--- NOTE | 2019-08-10 11:37 | NUR ---
Discharge instructions reviewed with patient/family. Patient receptive and verbalizes understanding. Follow-up care arranged. Written instructions given to patient/family. EARL CISSE
--- NOTE | 2019-08-10 12:53 | NUR ---
OCCUPATIONAL THERAPY CO-SIGN I approve of the Occupational Therapy notes written above. Chelsea Randall, OTR/L
--- NOTE | 2019-08-10 12:54 | NUR ---
PHYSICAL THERAPY CO-SIGN I approve of the Physical Therapy notes written above. JAZ CHAMBERS PT, DPT
== END 2019-08-10 12:16 | disposition other institution (70) | DRG 292 ==
LOC: ED 23:55 → EDHOLD 08-07 01:50 → 4E 08-07 01:50
PROVIDERS: Emergency Medicine; Family Medicine; Internal Medicine; ADMIT Family Medicine
DX: I11.0 Hypertensive heart disease with heart failure (principal); R65.10 Systemic inflammatory response syndrome (SIRS) of non-infectious origin without acute organ dysfunction; I50.43 Acute on chronic combined systolic (congestive) and diastolic (congestive) heart failure; I42.9 Cardiomyopathy, unspecified; I48.0 Paroxysmal atrial fibrillation; D53.9 Nutritional anemia, unspecified; J44.9 Chronic obstructive pulmonary disease, unspecified; F17.210 Nicotine dependence, cigarettes, uncomplicated; I34.1 Nonrheumatic mitral (valve) prolapse; E83.42 Hypomagnesemia; E87.6 Hypokalemia; E87.8 Other disorders of electrolyte and fluid balance, not elsewhere classified; I95.9 Hypotension, unspecified; I73.9 Peripheral vascular disease, unspecified; I25.10 Atherosclerotic heart disease of native coronary artery without angina pectoris; Z96.642 Presence of left artificial hip joint; Z88.0 Allergy status to penicillin; Z88.8 Allergy status to other drugs, medicaments and biological substances; Z91.018 Allergy to other foods; Z79.82 Long term (current) use of aspirin; Z79.899 Other long term (current) drug therapy; Z82.49 Family history of ischemic heart disease and other diseases of the circulatory system; Z98.51 Tubal ligation status; Z83.6 Family history of other diseases of the respiratory system; Z91.14 Patient's other noncompliance with medication regimen; R79.89 Other specified abnormal findings of blood chemistry

== ENCOUNTER 2021-01-31 12:13 | Emergency (ER) | payer MEDICARE, OTHER ==
[~2021-01-31] VITALS: Ht 167.6 cm; Wt 57.2 kg
[~2021-01-31 12:13] MED LIST changes: +ASPIRIN ADULT L81 M1 PO; +ASPIRIN ADULT L81 M2 PO; +ATORVASTATIN CA40 M1 PO; +LISINOPRIL10 M1 PO; +OXYGEN NAS; +POTASSIUM CHLO20 ME4 PO; +QUINAPRIL20 MG PO; +TORSEMIDE20 MG PO
== END 2021-01-31 14:31 | disposition home or self-care (01) ==
LOC: ED 12:13
DX: R06.00 Dyspnea, unspecified (principal); F17.200 Nicotine dependence, unspecified, uncomplicated; Z88.0 Allergy status to penicillin; Z88.1 Allergy status to other antibiotic agents; Z91.010 Allergy to peanuts; Z91.011 Allergy to milk products; Z91.012 Allergy to eggs